=== PATIENT | female | born 1960 | race African-American/Black ===

== ENCOUNTER 2022-03-08 10:36 | Emergency (ER) | payer OTHER, MEDICARE ==
[2022-03-08 10:50] VITALS: BP 149/91; PULSE 70; RESP 20; TEMP 98.2
[2022-03-08] MEDS ORDERED: IBUPROFEN 600 MG TAB PO STA (11:35)
[2022-03-08] MEDS ORDERED: ACETAMINOPHEN TAB 325 MG TAB PO STA (11:35)
--- NOTE | 2022-03-08 11:45 | ED ---
Extremity Problem HPI - General Chief complaint: Extremity Problem,Nontraumatic Stated complaint: rt leg numbness, hypertension Time Seen by Provider: 03/08/22 11:17 Source: patient, RN notes reviewed Mode of arrival: ambulatory Limitations: no limitations - History of Present Illness Initial comments: 61-year-old female presents emergency from chief complaint right leg pain. Patient states she's been having on and off issues with this for a while. Patient states that she is to see [place] for pain with states that she is currently at [place] so she is only been receiving Tylenol. Patient states it does help. 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 Patient denies any bowel, bladder incontinence or retention of saddle anesthesias. Patient states she just says stabbing pain to her left leg is worse with movement better at rest. Patient has no history DVT. Patient denies any other associated symptoms. Patient is currently and multiple vitamins including thiamine. Patient states she's had rehab for alcohol abuse. - Related Data Home Medications Medication Instructions Recorded Confirmed Acetaminophen Tab [Tylenol] 650 mg PO Q4H PRN 03/08/22 03/08/22 Albuterol Inhaler [Ventolin Hfa 1 puff INHALATION RT-QID PRN 03/08/22 03/08/22 Inhaler] Aspirin EC [Ecotrin Low Dose] 81 mg PO DAILY 03/08/22 03/08/22 Calcium/Magnesium/Zinc/Vitamin D 1 tab PO TID PRN 03/08/22 03/08/22 334/134/5mg Clopidogrel [Plavix] 75 mg PO DAILY 03/08/22 03/08/22 DULoxetine HCL [Cymbalta] 30 mg PO BID 03/08/22 03/08/22 Divalproex ER [Depakote ER] 500 mg PO DAILY 03/08/22 03/08/22 Folic Acid 1 mg PO DAILY 03/08/22 03/08/22 Metoprolol Succinate (ER) [Toprol 50 mg PO DAILY 03/08/22 03/08/22 Xl] Multivitamins, Thera [Multivitamin 1 tab PO DAILY 03/08/22 03/08/22 (formulary)] NIFEdipine [Procardia XL] 90 mg PO DAILY 03/08/22 03/08/22 Pantoprazole [Protonix] 40 mg PO DAILY 03/08/22 03/08/22 cloNIDine HCL [Catapres] 0.1 - 0.3 mg PO Q4H PRN 03/08/22 03/08/22 levETIRAcetam [Keppra] 250 mg PO BID 03/08/22 03/08/22 traZODone HCL [Desyrel] 50 - 150 mg PO HS PRN 03/08/22 03/08/22 Allergies Allergy/AdvReac Type Severity Reaction Status Date / Time lamotrigine [From Lamictal] Allergy Rash/Hives Verified 03/08/22 12:41 oxcarbazepine Allergy Rash/Hives Verified 03/08/22 12:41 [From Trileptal] Penicillins Allergy Rash/Hives Verified 03/08/22 12:41 all over body Sulfa (Sulfonamide Allergy Rash/Hives Verified 03/08/22 12:41 Antibiotics) phenobarbital AdvReac Rash/Hives Verified 03/08/22 12:41 Review of Systems ROS Statement: Those systems with pertinent positive or pertinent negative responses have been documented in the HPI. ROS Other: All systems not noted in ROS Statement are negative. Past Medical History Past Medical History: CVA/TIA, Hypertension, Seizure Disorder History of Any Multi-Drug Resistant Organisms: None Reported Past Surgical History: Orthopedic Surgery Past Psychological History: No Psychological Hx Reported Smoking Status: Current every day smoker Past Alcohol Use History: Daily, Heavy Past Drug Use History: Cocaine, Marijuana General Exam Limitations: no limitations General appearance: alert, in no apparent distress Head exam: Present: atraumatic, normocephalic, normal inspection Eye exam: Present: normal appearance, PERRL, EOMI. Absent: scleral icterus, conjunctival injection, periorbital swelling ENT exam: Present: normal exam, mucous membranes moist Neck exam: Present: normal inspection, full ROM. Absent: tenderness, meningismus, lymphadenopathy Respiratory exam: Present: normal lung sounds bilaterally. Absent: respiratory distress, wheezes, rales, rhonchi, stridor Cardiovascular Exam: Present: regular rate, normal rhythm, normal heart sounds. Absent: systolic murmur, diastolic murmur, rubs, gallop, clicks Extremities exam: Present: other (Strength 4/5 on the right 5/5 on the left patient states this is normal baseline for patient since prior CVA, pulses are equal bilaterally there is no significant swelling no discoloration. Normal warmth) Back exam: Present: full ROM, tenderness, paraspinal tenderness. Absent: vertebral tenderness Neurological exam: Present: alert, oriented X3, CN II-XII intact, reflexes normal. Absent: motor sensory deficit Skin exam: Present: warm, dry, intact, normal color. Absent: rash Course Vital Signs 03/08/22 10:47 Temperature 98.2 F Pulse Rate 70 Respiratory 20 Rate Blood Pressure 149/91 O2 Sat by Pulse 100 Oximetry Medical Decision Making - Medical Decision Making 61-year-old female presented for right leg numbness, pain. Patient's symptoms is related to lumbar radiculopathy. Patient has no red flag symptoms. Patient does have some minimal weakness the right leg which is chronic and unchanged per patient. Patient x-rays show severe degenerative changes consistent with patient's radiculopathy. She is advised that she needs MRI. I did update her regarding that she may have abdominal aortic aneurysm that she needs to follow with for close monitoring. Patient agrees to plan. Disposition Clinical Impression: Lumbar radiculopathy, acute Disposition: HOME SELF-CARE Condition: Stable Instructions (If sedation given, give patient instructions): Lumbar Radiculopathy (ED) Additional Instructions: Please return to the Emergency Department if symptoms worsen or any other concerns. Is patient prescribed a controlled substance at d/c from ED?: No Referrals: Nonstaff,Physician [Primary Care Provider] - 1-2 days Time of Disposition: 13:01
--- NOTE | 2022-03-08 12:15 | XR ---
EXAM TYPE: LUMBAR SPINE X RAY SERIES COMPARISON: NONE HISTORY: Pain TECHNIQUE: 4 views are submitted. FINDINGS: Alignment is anatomic. The pedicles are intact. The transverse processes are intact. There is diff use osteopenia with severe degenerative disc disease L4-L5. Facet arthropathy at levels L4-5 and L5-S 1. Vascular calcifications are noted. Diffuse osteopenia. A calcific density involving the aorta padmini ures 3 cm compatible with borderline aneurysm. Additional nonspecific punctate calcifications in the epigastric region. IMPRESSION: 1. Diffuse osteopenia with severe degenerative disc disease L4-L5 and moderate changes L5-S1. Recomme nd follow-up MRI. 2. Borderline abdominal aortic aneurysm measuring 3 cm.
--- NOTE | 2022-03-08 12:49 | US ---
EXAMINATION TYPE: US venous doppler duplex LE RT DATE OF EXAM: 03/08/2022 12:40 PM COMPARISON: NONE CLINICAL HISTORY: pain. Right leg stiffness, pain SIDE PERFORMED: Right TECHNIQUE: The lower extremity deep venous system is examined utilizing real time linear array sonog delia with graded compression, doppler sonography and color-flow sonography. VESSELS IMAGED: Common Femoral Vein Deep Femoral Vein Greater Saphenous Vein * Femoral Vein Popliteal Vein Small Saphenous Vein * Proximal Calf Veins (* superficial vessels) Right Leg: No evidence of DVT as visualized IMPRESSION: No evidence for DVT
== END 2022-03-08 13:37 | disposition home or self-care (01) ==
LOC: EC 10:36
DX: M54.16 Radiculopathy, lumbar region (principal); I10 Essential (primary) hypertension; F17.200 Nicotine dependence, unspecified, uncomplicated; F12.90 Cannabis use, unspecified, uncomplicated; Z79.82 Long term (current) use of aspirin; Z88.0 Allergy status to penicillin; Z88.8 Allergy status to other drugs, medicaments and biological substances; Z88.1 Allergy status to other antibiotic agents; Z88.2 Allergy status to sulfonamides
CPT/HCPCS: 72110; 99283